=== PATIENT | female | born 1970 | race African-American/Black ===

== ENCOUNTER 2024-04-07 16:06 | Emergency (ER) | payer OTHER ==
[~2024-04-07] VITALS: Ht 167.6 cm; Wt 77.0 kg
[~2024-04-07 16:06] MED LIST: CLINDAMYCIN
[2024-04-07 16:13] VITALS: BP 192/92; PULSE 91; RESP 16; TEMP 98; O2SAT 96
[2024-04-07] MEDS: IBUPROFEN 600MG TABLET PO ONE (18:37)
== END 2024-04-07 20:13 | disposition home or self-care (01) ==
LOC: ER 16:06
DX: S99.912A Unspecified injury of left ankle, initial encounter (principal); Z88.0 Allergy status to penicillin; Z88.6 Allergy status to analgesic agent; Z88.1 Allergy status to other antibiotic agents; V49.9XXA Car occupant (driver) (passenger) injured in unspecified traffic accident, initial encounter; Y93.89 Activity, other specified; Y92.89 Other specified places as the place of occurrence of the external cause; Y99.8 Other external cause status
CPT/HCPCS: 81025; 71045; 73060; 73610; 73630; 99284; Z7610